=== PATIENT | female | born 1980 | race Caucasian/White ===

== ENCOUNTER 2017-12-19 16:52 | Emergency (ER) | payer BC ==
[2017-12-19] MEDS ORDERED: KETOROLAC TROMETHAMINE INJ 30 MG/ML VIAL IV ONE (17:14)
[2017-12-19 17:17] VITALS: TEMP 98.1; O2SAT 99
--- NOTE | 2017-12-19 17:18 | ED.PDOC ---
History of Present Illness - General Chief Complaint: Problem Stated Complaint: back pain radiating to rt side Time Seen by Provider: 12/19/17 17:09 Source: patient - History of Present Illness Timing/Duration: yesterday Quality: severe, aching Onset Location: right flank Radiation: generalized flank Activites at Onset: none Prior abdominal problems: none Sexual intercourse history: single partner Improving Factors: nothing Worsening Factors: nothing Associated Symptoms: abdominal pain, nausea/vomiting Allergies/Adverse Reactions: Allergies NO KNOWN ALLERGY Allergy (Unverified 05/25/15 22:16) Home Medications: Ambulatory Orders Adderall 30 mg 05/25/15 Acetaminophen W/ Codeine [Tylenol W/ CODEINE #3] 1 ea PO Q4HR #20 12/19/17 Ondansetron HCl [Zofran] 4 mg PO Q4HR PRN #15 ml 12/19/17 Sulfa/Trimeth 800/160 (Ds) Tab [Bactrim DS] 1 tablet PO BID #10 tablet 12/19/17 Review of Systems - Review of Systems Constitutional: Denies: chills, fever EENTM: Denies: nose congestion, throat pain Respiratory: Denies: cough, short of breath Cardiology: Denies: chest pain, edema Gastrointestinal/Abdominal: States: abdominal pain, nausea, vomiting. Denies: diarrhea Genitourinary: Denies: dysuria, frequency Musculoskeletal: Denies: joint pain, muscle pain Skin: Denies: rash Neurological: Denies: headache, weakness Endocrine: Denies: increased thirst, increased urine Hematologic/Lymphatic: States: no symptoms reported Past Medical History (General) - Patient Medical History Hx Seizures: No Hx Stroke: No Hx Dementia: No Hx Asthma: No Hx of COPD: No Hx Cardiac Disorders: No Hx Congestive Heart Failure: No Hx Hypertension: No Hx Thyroid Disease: No Hx Diabetes: No Hx Cancer: No Hx of HIV: No Hx Hepatitis C: No - pts mother. Hx MRSA: No Surgical History: cholecystectomy, Hysterectomy - Vaccination History Hx Tetanus, Diphtheria Vaccination: No Hx Influenza Vaccination: No Hx Pneumococcal Vaccination: No Immunizations Up to Date: Yes - Social History Hx Alcohol Use: No - Female History Patient is a Female of Child Bearing Age (10 -59 yrs old): No - hysterectomy Patient : No Family Medical History - Family History Mother Family History: Unknown Physical Exam - Physical Exam General Appearance: Alert, Anxious, Obvious distress Eyes, Ears, Nose, Throat Exam: PERRL/EOMI, normal ENT inspection, pharynx normal Neck: normal inspection Cardiovascular/Respiratory: regular rate, rhythm, normal breath sounds, no respiratory distress Gastrointestinal/Abdominal: normal bowel sounds, soft, tenderness - diffusely without guarding Back Exam: normal inspection, CVA tenderness (R) Extremity: normal range of motion, non-tender, normal inspection, no pedal edema Neurologic: alert, normal mood/affect, oriented x 3 Skin Exam: normal color, warm/dry Lymphatic: no adenopathy Departure - Departure Clinical Impression: Ureterolithiasis Disposition: Discharge to Home or Self Care Departure Forms: ED Discharge - Pt. Copy, Patient Portal Self Enrollment Referrals: Nirav Narvaez MD [Primary Care Provider] - 1-2 Weeks Prescriptions: Acetaminophen W/ Codeine [Tylenol W/ CODEINE #3] 1 ea PO Q4HR #20 Ondansetron HCl [Zofran] 4 mg PO Q4HR PRN #15 ml PRN Reason: Nausea Sulfa/Trimeth 800/160 (Ds) Tab [Bactrim DS] 1 tablet PO BID #10 tablet Home Medications: Ambulatory Orders Adderall 30 mg 05/25/15 Acetaminophen W/ Codeine [Tylenol W/ CODEINE #3] 1 ea PO Q4HR #20 12/19/17 Ondansetron HCl [Zofran] 4 mg PO Q4HR PRN #15 ml 12/19/17 Sulfa/Trimeth 800/160 (Ds) Tab [Bactrim DS] 1 tablet PO BID #10 tablet 12/19/17
--- NOTE | 2017-12-19 19:04 | CT ---
EXAM DESCRIPTION: Abdoment/Pelvis w/o Contrast CLINICAL HISTORY: R flank pain COMPARISON: None Available. TECHNIQUE: Contiguous axial images of the abdomen and pelvis were obtained followed by reconstruction images. This exam was performed according to our departmental dose-optimization program, which includes automated exposure control, adjustment of the mA and/or kV according to patient size and/or use of iterative reconstruction technique. FINDINGS: The gallbladder is surgically absent. There is fatty infiltration of the liver. Punctate calcifications involve the spleen and liver. Right kidney is enlarged and there is right perinephric stranding. The right renal pelvis is moderately enlarged. There is mild dilatation of the proximal right ureter. In the proximal right ureter is a 3 mm stone. There is a 3 mm left renal stone. No other stone is seen in either kidney or either ureter. There is a small hiatal hernia. There are calcified right hilar lymph nodes. Adrenal glands are within normal limits. Aorta is of normal caliber and tapering. There is no free fluid in the abdomen or pelvis. There is no bowel obstruction. The appendix is within normal limits. There is no pericecal inflammation. IMPRESSION: Partially obstructive right proximal ureteral stone. Electronically signed by: Riccardo Mcgill 12/19/2017 7:03 PM [employer]
[2017-12-19 19:31] VITALS: BP 105/71
== END 2017-12-19 19:32 | disposition home or self-care (01) ==
LOC: ER 16:52
DX: N13.2 Hydronephrosis with renal and ureteral calculous obstruction (principal)
CPT/HCPCS: 74176; 80053; 81001; 85025; 87086; J1885

== ENCOUNTER → 2018-04-20 | Outpatient (CLI) | payer BC | LOC: GMAJ 14:33 | PROVIDERS: ATTEND Family Medicine | DX: D50.9 Iron deficiency anemia, unspecified (principal) ==

== ENCOUNTER → 2018-10-17 | Outpatient (CLI) | payer BC | LOC: GMAJ 14:05 | PROVIDERS: ATTEND Family Medicine | DX: Z00.00 Encounter for general adult medical examination without abnormal findings (principal) ==

== ENCOUNTER → 2020-12-05 | Outpatient (CLI) | payer BC ==
--- NOTE | 2020-12-08 11:58 | MAM ---
EXAM DESCRIPTION: 3D Screening BILATERAL : Digital Mammography. CLINICAL HISTORY: 40 years Female screening . No complaints. Remote family history of breast cancer. Menarche age 12. Childbirth age 22. Hysterectomy age 29. No HRT. Bilateral breast reduction age 22. Lifetime risk of developing breast cancer (Tyrer-Cuzick model)(%): 9.0. COMPARISON: Baseline study at this facility. No prior reports available. TECHNIQUE: Bilateral CC and MLO projection full-field images, digital tomosynthesis mammographic technique. Bilateral digital 2-D full-field MLO images. CAD available for 2-D images. FINDINGS: The breast parenchymal density pattern is: Scattered areas of fibroglandular density. Bilateral solitary microcalcifications. Coarse calcifications left breast. Artifact from patient's chin. No skin thickening or nipple retraction No focal, stellate mass or density, focal asymmetry , and no suspicious microcalcifications bilaterally. IMPRESSION: Benign exam. BIRAD CATEGORY: 2 BENIGN FINDINGS. RECOMMENDATIONS: FOLLOW UP: Routine digital bilateral mammographic screening, one year interval from December 2020. Written communication explaining the IMPRESSION and follow-up, will be mailed to the patient and referring health care provider. According to the [employer], yearly mammograms are recommended starting at age 40 and continuing as long as a woman is in good health. Any breast change noted on a breast self-exam should be reported promptly to the patient's healthcare provider. Breast MRI is recommended for women with an approximately 20-25% or greater lifetime risk of breast cancer, including women with a strong family history of breast or ovarian cancer and women who have been treated for Hodgkin's disease. A negative mammographic report should not delay tissue diagnosis in patients with significant clinical history or physical findings. Extremely dense breast tissue limits the sensitivity of digital mammography. Electronically signed by: Riccardo King MD 12/08/2020 11:57 AM NURSE PRACTITIONER
== END ==
LOC: MAMMO 12:59
PROVIDERS: ATTEND Nurse Practitioner Family
DX: Z12.31 Encounter for screening mammogram for malignant neoplasm of breast (principal)